=== PATIENT | male | born 1955 | race Two or more races ===

== ENCOUNTER 2021-02-15 23:50 | Inpatient (IN) | payer OTHER ==
[~2021-02-15] VITALS: Ht 188 cm; Wt 91.6 kg
[2021-02-16 00:56] LABS: Hematocrit 35.1 % (41.0-53.0); Hemoglobin 11.1 g/dL (13.5-17.5); Mean Corpuscular Hgb Conc. 31.7 g/dL (32.0-36.0); Mean Corpuscular Volume 88.1 fL (80.0-100.0); Platelet Count (auto) 225 10^3/uL (140-450); Red Blood Cells 3.98 10^6/uL (4.5-5.90); Red Cell Distribution Width 15.3 % (11.8-14.3)
[2021-02-16 00:59] LABS: White Blood Cell 47.1 10^3/uL (4.4-10.8)
[2021-02-16 01:00] LABS: Band Neutrophils % (manual) 0; Basophils % (manual) 0 (0.0-2.0); Blast Cells 0; Myelocytes % 0; Promyelocytes % 0; Reactive Lymphocytes 0
[2021-02-16 01:04] LABS: INR 0.99 (0.9-1.15); Partial Thromboplastin Time 26.6 sec (23.0-31.2)
[2021-02-16 01:05] LABS: Alanine Aminotransferase 17 U/L (16-61); Albumin 3.1 g/dL (3.4-5.0); Anion Gap 7 (5-15); Aspartate Aminotransferase 10 U/L (15-37); BUN/Creatinine Ratio 15.9; Blood Urea Nitrogen 61 mg/dL (7-18); Calcium 8.3 mg/dL (8.5-10.1); Carbon Dioxide 19 mmol/L (21-32); Chloride 108 mmol/L (98-107); GFR African American 20 mL/min; GFR Non-African American 17 mL/min; Glucose 190 mg/dL (74-106); Magnesium 2.2 mg/dL (1.6-2.6); Potassium 4.6 mmol/L (3.5-5.1); Sodium 134 mmol/L (136-145)
[2021-02-16 01:12] LABS: Alkaline Phosphatase 46 U/L (45-117); Bilirubin, Total 0.3 mg/dL (0.2-1.0); Total Protein 6.9 g/dL (6.4-8.2)
[2021-02-16 01:32] LABS: Eosinophils % (manual) 2 (0-7); Lymphocytes % (manual) 77 (10.0-50.0); Metamyelocytes % 1; Monocytes % (manual) 7 (0-12)
[2021-02-16] MEDS ORDERED: ALLO100T PO (07:50)
[2021-02-16] MEDS ORDERED: PROM2SYP2 (07:50)
[2021-02-16] MEDS ORDERED: LEVO112T4 PO (07:50)
[2021-02-16] MEDS ORDERED: SODI650T PO (07:50)
[2021-02-16] MEDS ORDERED: INSU1INJ5 SC (07:50)
[2021-02-16] MEDS ORDERED: IMBRUVICA (07:50)
[2021-02-16] MEDS ORDERED: DORZ2SOL18 (07:50)
[2021-02-16] MEDS ORDERED: SENN-199 (07:50)
[2021-02-16] MEDS ORDERED: TRAV0.0013 LEFTEYE (07:50)
[2021-02-16] MEDS ORDERED: ATOR40TA52 PO (07:50)
[2021-02-16] MEDS ORDERED: DEXTROSE (50%) 50ML SYRG IV PRN (11:15)
[2021-02-16] MEDS ORDERED: ACETAMINOPHEN 500 MG TAB PO PRN (11:15)
[2021-02-16] MEDS ORDERED: MORPHINE SULF INJ 2 MG/ML SYRINGE 1ML IV PRN (11:15)
[2021-02-16] MEDS ORDERED: ONDANSETRON HCL 4 MG/2 ML VIAL IV PRN (11:15)
[2021-02-16] MEDS ORDERED: NITROGLYCERIN 0.4 MG SL TAB SL PRN (11:15)
[2021-02-16] MEDS: ACCU-CHEK COMFORT CURVE STRIP VI SCH ×3 (11:47→22:00)
[2021-02-16] MEDS: HYDROcodone-ACET 5/325MG TAB PO PRN ×2 (13:24→22:59)
[2021-02-16 13:25] VITALS: BP 127/71
[2021-02-16] MEDS: SODIUM CHLORIDE 0.9% 1,000 ML IV SCH (15:21)
[2021-02-16 17:00] VITALS: BP 116/75
[2021-02-16] MEDS: MORPHINE SULF INJ 2 MG/ML SYRINGE 1ML IV PRN (17:07)
[2021-02-16] MEDS: InsuLIN REG 1unit/0.01ml Soln (100units/ml) SC SCH ×2 (17:16→22:34)
[2021-02-16 22:00] VITALS: BP 94/60
[2021-02-16] MEDS: ATORVASTATIN 20 MG TAB PO SCH (22:59)
[2021-02-17] MEDS: SODIUM CHLORIDE 0.9% 1,000 ML IV SCH (03:09)
[2021-02-17 05:00] VITALS: BP 110/68
[2021-02-17] MEDS: InsuLIN REG 1unit/0.01ml Soln (100units/ml) SC SCH ×4 (06:39→21:41)
[2021-02-17] MEDS: ACCU-CHEK COMFORT CURVE STRIP VI SCH ×4 (06:49→21:47)
[2021-02-17] MEDS: MORPHINE SULF INJ 2 MG/ML SYRINGE 1ML IV PRN ×2 (06:50→23:09)
[2021-02-17 06:56] LABS: BUN/Creatinine Ratio 17.2; Calcium 8.2 mg/dL (8.5-10.1); Potassium 5.5 mmol/L (3.5-5.1)
[2021-02-17 09:00] VITALS: BP 105/72
[2021-02-17] MEDS ORDERED: ALLOPURINOL 100 MG TAB PO SCH (10:00)
[2021-02-17] MEDS: INSULIN LANTUS (GLARGINE) 1 /0.01ml (100units/ml) SC SCH (10:00)
[2021-02-17] MEDS: ALLOPURINOL 100 MG TAB PO SCH (12:06)
[2021-02-17] MEDS: ASPirin-EC 81 mg tab PO SCH (12:07)
[2021-02-17] MEDS: LEVOTHYROXINE SODIUM 112 MCG TAB PO SCH (12:07)
[2021-02-17 12:47] VITALS: BP 105/68
[2021-02-17] MEDS ORDERED: FUROSEMIDE 40 MG/4 ML VIAL IV ONE (13:45)
[2021-02-17] MEDS ORDERED: DEXTROSE (50%) 50ML SYRG IV ONE (13:45)
[2021-02-17] MEDS ORDERED: SODIUM ZIRCONIUM CYCL 10 GM PAK PO ONE (13:45)
[2021-02-17] MEDS ORDERED: ALBUTEROL SULF 2.5 MG/0.5ML(0.5%) NEB SOLN NEB ONE (13:45)
[2021-02-17] MEDS ORDERED: InsuLIN REG 1unit/0.01ml Soln (100units/ml) IV ONE (13:45)
[2021-02-17] MEDS ORDERED: ALBUTEROL SULF 2.5 MG/0.5ML(0.5%) NEB SOLN ONE (14:12)
[2021-02-17 16:43] VITALS: BP 105/66
[2021-02-17 20:53] VITALS: BP 103/65
[2021-02-17] MEDS: ATORVASTATIN 20 MG TAB PO SCH (21:47)
[2021-02-18 05:00] VITALS: BP 99/64
[2021-02-18] MEDS: InsuLIN REG 1unit/0.01ml Soln (100units/ml) SC SCH ×3 (06:12→17:00)
[2021-02-18] MEDS: ACCU-CHEK COMFORT CURVE STRIP VI SCH ×3 (06:13→17:00)
[2021-02-18 06:28] LABS: BUN/Creatinine Ratio 17.3; Calcium 8.4 mg/dL (8.5-10.1); Potassium 5.3 mmol/L (3.5-5.1)
[2021-02-18 08:57] VITALS: BP 91/63
[2021-02-18] MEDS: LEVOTHYROXINE SODIUM 112 MCG TAB PO SCH (10:12)
[2021-02-18] MEDS: ASPirin-EC 81 mg tab PO SCH (10:12)
[2021-02-18] MEDS: ALLOPURINOL 100 MG TAB PO SCH (10:13)
[2021-02-18] MEDS: INSULIN LANTUS (GLARGINE) 1 /0.01ml (100units/ml) SC SCH (10:17)
[2021-02-18 13:00] VITALS: BP 113/67
[2021-02-18 17:03] VITALS: BP 100/74
[2021-02-18] MEDS ORDERED: SODIUM CHLORIDE 0.9% 1,000 ML IV SCH (18:45)
[2021-02-18] MEDS ORDERED: SODIUM CHLORIDE 0.9% 500 ML IV ONE (18:45)
[2021-02-19] MEDS ORDERED: LEVOTHYROXINE SODIUM 112 MCG TAB PO SCH (07:00)
== END 2021-02-18 18:35 | disposition home or self-care (01) | DRG 313 ==
LOC: ER 23:52 → TELE 02-16 11:08 → TELE-EAST 02-16 12:53
PROVIDERS: ADMIT Nurse Practitioner Acute Care; ATTEND Internal Medicine Geriatric Medicine
DX: R07.89 Other chest pain (principal); Q61.3 Polycystic kidney, unspecified; E87.1 Hypo-osmolality and hyponatremia; E87.2 Acidosis; N18.4 Chronic kidney disease, stage 4 (severe); E03.9 Hypothyroidism, unspecified; D63.1 Anemia in chronic kidney disease; E11.22 Type 2 diabetes mellitus with diabetic chronic kidney disease; Z20.822 Contact with and (suspected) exposure to COVID-19; M10.9 Gout, unspecified; E78.5 Hyperlipidemia, unspecified; E87.5 Hyperkalemia; I12.9 Hypertensive chronic kidney disease with stage 1 through stage 4 chronic kidney disease, or unspecified chronic kidney disease; Z85.72 Personal history of non-Hodgkin lymphomas; Z79.4 Long term (current) use of insulin; Z90.5 Acquired absence of kidney
CPT/HCPCS: 36415; 71045; 78452; 80048; 80053; 82962; 83036; 83735; 83880; 84443; 84484; 85007; 85027; 85379; 85610; 85730; 86141; 87426; 93005; 93017; 93306; 94644; G0378; J1815